=== PATIENT | male | born 1960 | race Two or more races ===

== ENCOUNTER 2023-06-12 06:20 | Inpatient (IN) | payer OTHER ==
[~2023-06-12] VITALS: Ht 170.2 cm; Wt 74.4 kg
[2023-06-12 14:13] LABS: ABG PH 7.398 (7.35-7.45); ABG PO2 68.4 mmHg (80-100); ABG pCO2 41.7 mmHg (35-45); BASE EXCESS 0.2 mmol/l; BICARBONATE 25.2 mmol/l (23-25); SaO2 93.4 %; Tco2 26.4 mmol/l
[2023-06-12 15:09] LABS: allen test SATISFACTORY; o2 42 %; puncture site RADIAL RIGHT
[2023-06-12 16:08] LABS: ABG PH 7.415 (7.35-7.45); ABG PO2 166.1 mmHg (80-100); ABG pCO2 38.4 mmHg (35-45); BASE EXCESS -0.2 mmol/l; BICARBONATE 24.1 mmol/l (23-25); SaO2 99.5 %; Tco2 25.3 mmol/l
[2023-06-12 16:09] LABS: allen test SATISFACTORY; o2 100 %; puncture site RADIAL RIGHT
[2023-06-13 06:54] LABS: HEMATOCRIT 44.9 % (39.0-48.0); HEMOGLOBIN 15.1 g/dL (13-16.00); MEAN CELL VOLUME 92.9 fL (80.0-100.00); MEAN CORPUSCULAR HEMOGLOBIN 31.2 pg (27.00-32.0); MEAN CORPUSCULAR HGB CONC 33.5 g/dl (32.0-36.0); PLATELET COUNT 262 K/uL (150-450); RED BLOOD COUNT 4.84 M/uL (4.00-6.00)
[2023-06-13 07:17] LABS: BILIRUBIN TOTAL 1.31 mg/dL (0.3-1.2); CALCIUM 7.8 mg/dL (8.5-10.1); CREATININE SERUM 1.39 mg/dL (0.70-1.30); GFR 51.44; GLOBULINA 2.6 G/DL (2.4-3.5); POTASSIUM 4.21 mEq/L (3.5-5.1); TOTAL PROTEIN 5.6 gm/dL (6.4-8.2)
[2023-06-13 14:24] LABS: ABG PH 7.443 (7.35-7.45); ABG PO2 66.4 mmHg (80-100); ABG pCO2 39.7 mmHg (35-45); BASE EXCESS 2.4 mmol/l; BICARBONATE 26.6 mmol/l (23-25); Tco2 27.8 mmol/l; allen test SATISFACTORY; o2 21 %; puncture site RADIAL RIGHT
[2023-06-13 14:25] LABS: SaO2 93.8 %
[2023-06-14 06:21] LABS: HEMATOCRIT 41.3 % (39.0-48.0); HEMOGLOBIN 14.4 g/dL (13-16.00); MEAN CELL VOLUME 91.5 fL (80.0-100.00); MEAN CORPUSCULAR HEMOGLOBIN 31.9 pg (27.00-32.0); MEAN CORPUSCULAR HGB CONC 34.8 g/dl (32.0-36.0); PLATELET COUNT 233 K/uL (150-450); RED BLOOD COUNT 4.51 M/uL (4.00-6.00); RED CELL DISTRIBUTION WIDTH 14.3 % (11.5-14.5)
[2023-06-14 07:02] LABS: ALBUMIN 2.9 gm/dL (3.4-5.0); BILIRUBIN TOTAL 1.02 mg/dL (0.3-1.2); CALCIUM 8.1 mg/dL (8.5-10.1); CREATININE SERUM 1.19 mg/dL (0.70-1.30); GFR 61.54; GLOBULINA 2.5 G/DL (2.4-3.5); POTASSIUM 4.26 mEq/L (3.5-5.1); TOTAL PROTEIN 5.4 gm/dL (6.4-8.2)
[2023-06-15 06:59] LABS: CALCIUM 8.6 mg/dL (8.5-10.1); CREATININE SERUM 1.14 mg/dL (0.70-1.30); GFR 64.67; POTASSIUM 4.1 mEq/L (3.5-5.1)
[2023-06-15 14:08] LABS: ABG PH 7.453 (7.35-7.45); ABG PO2 72.1 mmHg (80-100); ABG pCO2 36.5 mmHg (35-45); BASE EXCESS 1.3 mmol/l; SaO2 95.2 %; Tco2 26.1 mmol/l; allen test SATISFACTORY; o2 21 %; puncture site RADIAL RIGHT
== END 2023-06-15 17:56 | disposition home or self-care (01) | DRG 352 ==
LOC: CIR.AMB 06:20 → O/R 14:30 → SURG 15:59
PROVIDERS: Internal Medicine; ADMIT Surgery; ATTEND Surgery
PROC: 0YJ54ZZ Inspection of Right Inguinal Region, Percutaneous Endoscopic Approach (ICD-10-PCS; 2023-06-12)
PROC: 3E0F7GC Introduction of Other Therapeutic Substance into Respiratory Tract, Via Natural or Artificial Opening (ICD-10-PCS; 2023-06-12)
PROC: 0YQ50ZZ Repair Right Inguinal Region, Open Approach (ICD-10-PCS; principal; 2023-06-12 10:30)
PROC: BB24Y0Z Computerized Tomography (CT Scan) of Bilateral Lungs using Other Contrast, Unenhanced and Enhanced (ICD-10-PCS; 2023-06-15)
DX: K40.90 Unilateral inguinal hernia, without obstruction or gangrene, not specified as recurrent (principal); Z53.31 Laparoscopic surgical procedure converted to open procedure; I10 Essential (primary) hypertension; F90.9 Attention-deficit hyperactivity disorder, unspecified type; R06.09 Other forms of dyspnea; E03.8 Other specified hypothyroidism